=== PATIENT | male | born 1990 | race Caucasian/White ===

== ENCOUNTER 2018-03-23 06:32 | Emergency (ER) | payer MEDICAID ==
[~2018-03-23] VITALS: Ht 170.2 cm; Wt 70.0 kg
[2018-03-23] MEDS ORDERED: KETOROLAC 30MG/ML VIAL IV ONE (08:15)
[2018-03-23] MEDS ORDERED: DEXAMETHASONE 10 MG/ML VIAL IV ONE (08:15)
[2018-03-23] MEDS ORDERED: SODIUM CHLORIDE 0.9% 1,000 ML IV ONE (08:15)
[2018-03-23 08:18] LABS: BASOPHILS % 0.1 % (0.0-2.0); EOSINOPHILS % 0.2 % (0.0-5.0); HEMATOCRIT. 36.5 % (42.0-52.0); HEMOGLOBIN. 12.4 g/dL (14.0-18.0); LYMPHOCYTES % 10.1 % (20.0-50.0); MEAN CORPUSCULAR HEMOGLOBIN 29.8 pg (28.0-32.0); MEAN CORPUSCULAR VOLUME 87.8 fL (80.0-94.0); MONOCYTES % 10.5 % (2.0-8.0); NEUTROPHILS % 79.1 % (40.0-76.0); PLATELET 233 x1000/uL (130-400); RED BLOOD CELL COUNT 4.16 mill/uL (4.7-6.1); RED CELL DISTRIBUTION WIDTH 13.9 % (11.6-14.6)
[2018-03-23 08:25] LABS: CHLORIDE 103 mEq/L (98-107)
[2018-03-23] MEDS ORDERED: MORPHINE SULFATE 4 MG/ML CPJ (NOT FOR IM USE) IV ONE (09:00)
[2018-03-23] MEDS ORDERED: AMPICILLIN SOD/SULBACTAM NA 3 G in SODIUM CHLORIDE 0.9% 100 ML IV STA (09:28)
[2018-03-23] MEDS ORDERED: IOHEXOL-300 100 ML BOTTLE ONE (10:31)
[2018-03-23] MEDS ORDERED: LIDOCAINE HCL 1% 20ML VIAL (Pyxis) INJ MC ONE (11:00)
[2018-03-23] MEDS ORDERED: BENZOCAINE/LANOLIN/ALOE VERA SPRAY TOP ONE (11:00)
[2018-03-23] MEDS ORDERED: LIDOCAINE HCL/PF 1% 10 MG/ML 5ML VIAL IJ NR (11:15)
[2018-03-23] MEDS ORDERED: TETRACAINE/BENZOCAINE/BUTAMBEN 20 GM SPRAY MM NR (11:30)
[2018-03-23 13:01] VITALS: BP 123/68
== END 2018-03-23 13:21 | disposition home or self-care (01) ==
LOC: ER 07:10
DX: J36 Peritonsillar abscess (principal)
CPT/HCPCS: 36415; 42700; 70491; 80048; 83605; 85025; 87070; 87430; 96365; 96375; 99285; J0295; J1100; J1885; J2270; J3490; J7030; Q9967; Z7610; J7050